=== PATIENT | male | born 2000 | race Caucasian/White ===

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

== ENCOUNTER 2020-10-05 18:05 | Emergency (ER) | payer MEDICAID, OTHER ==
[2020-10-05] MEDS ORDERED: BUFFERED LIDOCAINE 10 ML SYRINGE SUBQ STA (18:48)
[2020-10-05] MEDS ORDERED: TETANUS/DIPHTHERIA/PERTUSSIS 0.5 ML SYRINGE IM ONE (18:48)
--- NOTE | 2020-10-05 18:50 | ED Physician Documentation ---
History of Present Illness - Stated complaint Stated Complaint: RT BACK PX - Chief complaint Chief Complaint: Wound - Additonal information Additional information: 20-year-old male presents the emergency department for evaluation of right but tock abscess that began about 4 days ago. 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 No history of previously does have a history of eczema. Unknown last tetanus. No fevers. The swelling in the buttock makes it difficult for him to sit. Review of Systems Constitutional: denies: Fever, Chills Eyes: reports: Reviewed and negative Ears: reports: Reviewed and negative Throat: reports: Reviewed and negative Cardiac: reports: Reviewed and negative Respiratory: reports: Reviewed and negative GI: reports: Reviewed and negative : reports: Reviewed and negative Skin: reports: Lesions (Abscess right buttock.) Musculoskeletal: reports: Reviewed and negative Neurologic: reports: Reviewed and negative PD PAST MEDICAL HISTORY - Past Medical History Cardiovascular: None Respiratory: None Neuro: None Endocrine/Autoimmune: None GI: None : None HEENT: None Psych: None Musculoskeletal: None Derm: Eczema - Past Surgical History Past Surgical History: Yes - Present Medications Home Medications: Ambulatory Orders Medication Instructions Recorded Confirmed Sulfamethox/Trimeth 800/160 1 each PO BID #14 tablet 10/05/20 [Bactrim Ds 800/160] - Allergies Allergies/Adverse Reactions: Allergies Allergy/AdvReac Type Severity Reaction Status Date / Time No Known Drug Allergies Allergy Verified 10/05/20 18:09 - Social History Does the pt smoke?: No Smoking Status: Never smoker Does the pt drink ETOH?: No Does the pt have substance abuse?: No - Immunizations Immunizations are current?: Yes - POLST Patient has POLST: No PD ED PE EXPANDED - General General: Alert, No acute distress - Derm Derm: Abscess (3 cm fluctuant abscess right buttock without drainage at this time. Mild surrounding erythema and induration.) Results - Vitals Vitals: Vital Signs - 24 hr 10/05/20 18:10 Temperature 36.4 C L Heart Rate 78 Respiratory 16 Rate Blood Pressure 143/73 H O2 Saturation 99 Oxygen O2 Source Room air Procedures - Abscess I&D (location) right buttock Preparation: Betadine, Lidocaine 1% Incision: Incised with scalpel, Purulent drainage, Loculations broken, Irrigated, Packed. No: Culture obtained Other: Pt tolerated well, Dressing applied, Antibiotic prescribed PD MEDICAL DECISION MAKING - ED course Complexity details: reviewed results, re-evaluated patient ED course: 20-year-old male presents emergency department for evaluation of 3 to 4 days abscess formation on the right buttock. On exam he has a palpable 3 cm fluctuant abscess that was easily drained at the bedside using a scalpel. Given the amount of purulent drainage she was placed on Bactrim as he does have some surrounding cellulitis. Presumptive MRSA however no culture was obtained. Small amount of packing was placed this is advised to be removed in 36 to 48 hours. Routine wound care and return precautions were discussed. Departure - Departure Disposition: 01 Home, Self Care Clinical Impression: Abscess of right buttock Condition: Stable Record reviewed to determine appropriate education?: Yes Instructions: ED Abscess IandD Prescriptions: Sulfamethox/Trimeth 800/160 [Bactrim Ds 800/160] 1 each PO BID #14 tablet Comments: Micky you had an abscess in your right buttock that was drained at the bedside today. Your first dose of antibiotic was given here in the emergency department. Tomorrow please fill the remaining prescription and take twice daily as directed. You do have a small amount of packing that is in the abscess. I would like this removed in 36 to 48 hours. It is okay to shower normally and allow warm water and soap to rinse through the wound. However with the antibiotics and now drainage of this abscess I would expect your symptoms are markedly better over the next 3 to 4 days. If worsening please return to the ER for a second look.
--- OUTSIDE RECORDS SUMMARY | 2020-10-05 18:56 | EXTERNAL MEDICAL SUMMARY RPT | Continuity of Care Document ---
:2000 Demographics Phone Unavailable Preferred Language Unknown Marital Status Unknown Jewish Affiliation Unknown Race Unknown Ethnic Group Unknown Author Organization [facility] Address [address] [place] [address] Phone Allergies Encounters Medications Problems Results
[2020-10-05] MEDS ORDERED: SULFAMETH/TRIMETH DS 800/160 MG TABLET PO STA (19:03)
[2020-10-05 19:10] VITALS: BP 138/85
== END 2020-10-05 19:13 | disposition home or self-care (01) ==
LOC: ED 18:05
DX: L02.31 Cutaneous abscess of buttock (principal); L03.317 Cellulitis of buttock; Z23 Encounter for immunization
CPT/HCPCS: 10061; 90471; 90715; 99283; A9270